=== PATIENT | female | born 1970 | race Asian ===

== ENCOUNTER → 2019-01-05 | Day surgery (SDC) | payer OTHER ==
--- OUTSIDE RECORDS SUMMARY | 2019-01-05 09:57 | XMS REPORT | Continuity of Care Document ---
:1970 Author Organization Interface Problems Problem Status Onset Date Classification Date Comments Source Reported Medications Medication Details Route Status Patient Ordering Order Source Instructions Provider Date Allergies, Adverse Reactions, Alerts Substance Category Reaction Severity Reaction Status Date Comments Source type Reported Immunizations Immunization Date Given Site Status Last Updated Comments Source Results Order Results Value Reference Date Interpretation Comments Source Name Range Vital Signs Vital Sign Value Date Comments Source Encounters Location Location Encounter Encounter Reason Attending ADM DC Status Source Details Type Number For Provider Date Date Visit Outpatient [id number] MARY 03/15 [facility] CELINA /Rene Brooks Procedures Procedure Code Date Perfomer Comments Source
--- OUTSIDE RECORDS SUMMARY | 2019-01-05 09:57 | XMS REPORT ---
:1970 Author Organization [facility] Address [address] [place] [address] Dr. Mclean [address] [place] [id number] Care Team Providers Name Role Phone Unavailable Unavailable Unavailable Problems This patient has no known problems. Allergies, Adverse Reactions, Alerts This patient has no known allergies or adverse reactions. Medications This patient has no known medications.
--- NOTE | 2019-01-05 11:13 | RAD REPORT ---
EXAM DESCRIPTION: Ultrasound-guided vacuum assisted breast core biopsy CLINICAL HISTORY: Breast mass R92.8 COMPARISON: Follow Up Breast Axilla Comp dated 12/18/2018 FINDINGS: Informed consent was obtained and time-out was performed. The patient's left breast was prepped and draped in the usual sterile fashion. 1% lidocaine was used for local anesthetic purposes. Utilizing aseptic technique and ultrasound guidance, a 12 gauge vacuum assisted core biopsy device wa s used to obtain 1 core specimens through the mass of interest left lower outer quadrant approximatel y 3 o'clock position. A post biopsy clip was then placed. All collected material was sent for cytology. Patient tolerated procedure well. IMPRESSION: Successful ultrasound guided vacuum assisted left breast mass biopsy.
== END ==
LOC: DS 09:48
PROVIDERS: ATTEND Student in an Organized Health Care Education/Training Program
DX: D24.2 Benign neoplasm of left breast (principal); N60.92 Unspecified benign mammary dysplasia of left breast
CPT/HCPCS: 19083; 88305

== ENCOUNTER 2019-03-02 10:48 | Emergency (ER) | payer OTHER ==
--- OUTSIDE RECORDS SUMMARY | 2019-03-02 10:51 | XMS REPORT | Continuity of Care Document ---
:1970 Author Organization [employer] Care Team Providers Name Role Phone [employer] Unavailable Unavailable Problems No Data Provided for This Section Medications No Data Provided for This Section Allergies, Adverse Reactions, Alerts No Known Medication Allergies Immunizations No Data Provided for This Section Results No Data Provided for This Section Pathology Reports No Data Provided for This Section Diagnostic Reports No Data Provided for This Section Consultation Notes No Data Provided for This Section Discharge Summaries No Data Provided for This Section History and Physicals No Data Provided for This Section Vital Signs No Data Provided for This Section Encounters Location Location Encounter Encounter Reason Attending ADM DC Status Source Details Type Number For Provider Date Date Visit Outpatient [id number] MARY 03/15 [facility] Procedures No Data Provided for This Section Assessment and Plan No Data Provided for This Section Plan of Care No Data Provided for This Section Social History No Data Provided for This Section Family History No Data Provided for This Section Advance Directives No Data Provided for This Section Functional Status No Data Provided for This Section
--- OUTSIDE RECORDS SUMMARY | 2019-03-02 10:51 | XMS REPORT ---
:1970 [facility] Address [address] [place] [address] Dr. [address] [place] [id number] Care Team Providers Name Role Phone Unavailable Unavailable Unavailable Problems This patient has no known problems. Allergies, Adverse Reactions, Alerts This patient has no known allergies or adverse reactions. Medications This patient has no known medications.
--- NOTE | 2019-03-02 12:12 | ER ---
Nurse's Notes [facility] Name: Valerio Dias Age: 48 yrs Sex: Female : 1970 Arrival Date: 03/02/2019 Time: 10:50 Bed 17 Private MD: Unknown, Unknown Diagnosis: Edema of buccal mucosa;Dental root caries Presentation: 03/02 11:12 Presenting complaint: Patient states: A dentist tried to do a root canal and they could la1 not get it done, They said too much infection so they put me on abx and pain meds, swelling to the left side of my face is getting worse, airway patent, no resp distress. Transition of care: patient was not received from another setting of care. Onset of symptoms was March 02, 2019. Risk Assessment: Do you want to hurt yourself or someone else? Patient reports no desire to harm self or others. Initial Sepsis Screen: Does the patient meet any 2 criteria? No. Patient's initial sepsis screen is negative. Does the patient have a suspected source of infection? No. Patient's initial sepsis screen is negative. Care prior to arrival: None. 11:12 Method Of Arrival: Ambulatory la1 11:12 Acuity: BOUCHRA 3 la1 AUCTIONEER TOBACCO: 12:53 LMP N/A - . tw2 Historical: - Allergies: 11:14 No Known Allergies; la1 - PMHx: 11:14 Diabetes - NIDDM; Hypertension; High Cholesterol; vit d deficiency; Anemia; la1 - Immunization history:: Adult Immunizations up to date. - Social history:: Smoking status: Patient/guardian denies using tobacco. - Ebola Screening: : No symptoms or risks identified at this time. Screenin:49 Abuse screen: Denies threats or abuse. Nutritional screening: No deficits noted. tw2 Tuberculosis screening: No symptoms or risk factors identified. Fall Risk None identified. Assessment: 11:49 General: Appears in no apparent distress. Behavior is calm, cooperative, appropriate tw2 for age. 11:49 Pain: Complains of pain in left cheek, mouth and left jaw. Neuro: Level of tw2 Consciousness is awake, alert, obeys commands, Oriented to person, place, time, situation. Cardiovascular: Heart tones S1 S2 Patient's skin is warm and dry. Respiratory: Airway is patent Respiratory effort is even, unlabored, Respiratory pattern is regular, symmetrical, Breath sounds are clear bilaterally. GI: No signs and/or symptoms were reported involving the gastrointestinal system. Abdomen is flat, Bowel sounds present X 4 quads. : No signs and/or symptoms were reported regarding the genitourinary system. EENT: Reports pain since dental pain from this too that i need a root canal on. Derm: No signs and/or symptoms reported regarding the dermatologic system. Musculoskeletal: Range of motion: intact in all extremities. 12:23 Reassessment: Patient appears in no apparent distress at this time. No changes from tw2 previously documented assessment. Patient and/or family updated on plan of care and expected duration. Pain level reassessed. Patient is alert, oriented x 3, equal unlabored respirations, skin warm/dry/pink. 12:52 Reassessment: Patient appears in no apparent distress at this time. No changes from tw2 previously documented assessment. Patient and/or family updated on plan of care and expected duration. Pain level reassessed. Patient is alert, oriented x 3, equal unlabored respirations, skin warm/dry/pink. Vital Signs: 11:15 BP 110 / 60; Pulse 74; Resp 16; Temp 97.9; Pulse Ox 98% on R/A; Weight 58.97 kg; la1 12:21 BP 110 / 57; Pulse 66; Resp 17; Temp 97.9(TE); Pulse Ox 100% on R/A; tw2 12:52 BP 108 / 57; Pulse 61; Resp 17; Pulse Ox 100% on R/A; tw2 ED Course: 10:50 Patient arrived in ED. ag5 10:51 Unknown, Unknown is Private Physician. ag5 11:14 Triage completed. la1 11:15 Arm band placed on left wrist. la1 11:24 [facility] Kra[facility]C [facility]. snw 11:24 Jose M Light MD is Attending Physician. snw 11:25 Nirmala Hickman, RIMA is Primary Nurse. tw2 11:48 Bed in low position. Call light in reach. Pulse ox on. NIBP on. tw2 12:22 Awaiting: completion of ABX observation after INJ prior to discharge. tw2 12:53 No provider procedures requiring assistance completed. Patient did not have IV access tw2 during this emergency room visit. Administered Medications: 12:15 Drug: Clindamycin 600 mg {Note: 2ml (300mg) in right gluteus, 2ml (300mg) in left tw2 gluteus.} Route: IM; Site: right gluteus; 12:32 Follow up: Response: No adverse reaction tw2 Outcome: 12:11 Discharge ordered by . nirav 12:53 Discharged to home ambulatory, with significant other. tw2 12:53 Condition: stable 12:53 Discharge instructions given to patient, significant other, Instructed on discharge instructions, follow up and referral plans. no drinking with medication, no driving heavy equipment, medication usage, Demonstrated understanding of instructions, follow-up care, medications, Prescriptions given X 2. 12:54 Patient left the ED. tw2 Signatures: Karen Kraus, SMOKE TESTER-C SMOKE TESTER-Csnw Naren Landa RN RN la1 Nirmala Hickman RN RN tw2 Garth Chadwick 5
--- NOTE | 2019-03-02 12:12 | EDPHYS ---
Physician Documentation [facility] Name: Valerio Dias Age: 48 yrs Sex: Female : 1970 Arrival Date: 03/02/2019 Time: 10:50 Bed 17 Private MD: Unknown, Unknown ED Physician Jose M Light HPI: 03/02 12:15 This 48 yrs old Female presents to ER via Ambulatory with complaints of Mouth snw Swelling, Dental Injury. 12:15 The patient presents with pain, swelling. The problem is located in the mouth and left snw cheek. Onset: The symptoms/episode began/occurred gradually, 3 day(s) ago, and became worse and became persistent. Duration: The symptoms are continuous. Modifying factors: the symptoms are aggravated by manipulation of buccal area. Associated signs and symptoms: Pertinent negatives: anorexia, chills, dysphagia, fever, redness in area. Severity of symptoms: At their worst the symptoms were moderate. The patient has not experienced similar symptoms in the past. dental cleaning and manipulation of cap for root canal prep. MATCH MARKER: 12:53 LMP N/A - . tw2 Historical: - Allergies: 11:14 No Known Allergies; la1 - PMHx: 11:14 Diabetes - NIDDM; Hypertension; High Cholesterol; vit d deficiency; Anemia; la1 - Immunization history:: Adult Immunizations up to date. - Social history:: Smoking status: Patient/guardian denies using tobacco. - Ebola Screening: : No symptoms or risks identified at this time. ROS: 12:09 Constitutional: Negative for fever, chills, and weight loss, Eyes: Negative for injury, snw pain, redness, and discharge, Neck: Negative for injury, pain, and swelling, Cardiovascular: Negative for chest pain, palpitations, and edema, Respiratory: Negative for shortness of breath, cough, wheezing, and pleuritic chest pain, Abdomen/GI: Negative for abdominal pain, nausea, vomiting, diarrhea, and constipation, Back: Negative for injury and pain, : Negative for injury, bleeding, discharge, and swelling, MS/Extremity: Negative for injury and deformity, Skin: Negative for injury, rash, and discoloration, Neuro: Negative for headache, weakness, numbness, tingling, and seizure, Psych: Negative for depression, anxiety, suicide ideation, homicidal ideation, and hallucinations. 12:09 ENT: Positive for dental pain, facial edema. Exam: 12:06 Constitutional: This is a well developed, well nourished patient who is awake, alert, snw and in no acute distress. Eyes: Pupils equal round and reactive to light, extra-ocular motions intact. Lids and lashes normal. Conjunctiva and sclera are non-icteric and not injected. Cornea within normal limits. Periorbital areas with no swelling, redness, or edema. Neck: Trachea midline, no thyromegaly or masses palpated, and no cervical lymphadenopathy. Supple, full range of motion without nuchal rigidity, or vertebral point tenderness. No Meningismus. Chest/axilla: Normal chest wall appearance and motion. Nontender with no deformity. No lesions are appreciated. Cardiovascular: Regular rate and rhythm with a normal S1 and S2. No gallops, murmurs, or rubs. Normal PMI, no JVD. No pulse deficits. Respiratory: Lungs have equal breath sounds bilaterally, clear to auscultation and percussion. No rales, rhonchi or wheezes noted. No increased work of breathing, no retractions or nasal flaring. Abdomen/GI: Soft, non-tender, with normal bowel sounds. No distension or tympany. No guarding or rebound. No evidence of tenderness throughout. Back: No spinal tenderness. No costovertebral tenderness. Full range of motion. Skin: Warm, dry with normal turgor. Normal color with no rashes, no lesions, and no evidence of cellulitis. MS/ Extremity: Pulses equal, no cyanosis. Neurovascular intact. Full, normal range of motion. Neuro: Awake and alert, GCS 15, oriented to person, place, time, and situation. Cranial nerves II-XII grossly intact. Motor strength 5/5 in all extremities. Sensory grossly intact. Cerebellar exam normal. Normal gait. Psych: Awake, alert, with orientation to person, place and time. Behavior, mood, and affect are within normal limits. 12:06 Head/face: Noted is swelling, that is moderate, of the left zygomatic area and left cheek. 12:06 ENT: TM's: are normal, Nose: is normal, Mouth: no elevation of floor of mouth, + buccal edema, ecchymosis to skin superior to distal mandible, Posterior pharynx: is normal, Dental exam: muliple caps to upper, molars to left, tenderness to buccal area . Vital Signs: 11:15 BP 110 / 60; Pulse 74; Resp 16; Temp 97.9; Pulse Ox 98% on R/A; Weight 58.97 kg; la1 12:21 BP 110 / 57; Pulse 66; Resp 17; Temp 97.9(TE); Pulse Ox 100% on R/A; tw2 12:52 BP 108 / 57; Pulse 61; Resp 17; Pulse Ox 100% on R/A; tw2 MDM: 11:25 Patient medically screened. snw 12:12 Data reviewed: vital signs, nurses notes. Data interpreted: Pulse oximetry: on room air snw is 98 %. Interpretation: normal. Counseling: I had a detailed discussion with the patient and/or guardian regarding: the historical points, exam findings, and any diagnostic results supporting the discharge/admit diagnosis, the need for outpatient follow up, to return to the emergency department if symptoms worsen or persist or if there are any questions or concerns that arise at home. Special discussion: Based on the history and exam findings, there is no indication for further emergent testing or inpatient evaluation. I discussed with the patient/guardian the need to see a dentist for further evaluation of the symptoms. 03/02 12:05 Order name: Ice pack; Complete Time: 12:11 snw Administered Medications: 12:15 Drug: Clindamycin 600 mg {Note: 2ml (300mg) in right gluteus, 2ml (300mg) in left tw2 gluteus.} Route: IM; Site: right gluteus; 12:32 Follow up: Response: No adverse reaction tw2 Disposition: 15:05 Co-signature as Attending Physician, Jose M Light MD. rn Disposition: 03/02/19 12:11 Discharged to Home. Impression: Edema of buccal mucosa, Dental root caries. - Condition is Stable. - Discharge Instructions: Dental Caries, Adult, Dental Pain, Root Canal, Diet and Dental Disease, Dental Extraction, Care After, Inae-de-Yefr, Preventive Dental Care, Adult. - Prescriptions for Clindamycin HCl 300 mg Oral Capsule - take 1 capsule by ORAL route every 8 hours for 10 days; 30 capsule. Tylenol- Codeine #3 300-30 mg Oral Tablet - take 2 tablets by ORAL route every 6 hours As needed; 14 tablet. - Medication Reconciliation Form, Thank You Letter, Antibiotic Education, Prescription Opioid Use, Work release form form. - Follow up: Private Physician; When: as scheduled; Reason: Recheck today's complaints, Continuance of care, Re-evaluation by your physician. - Notes: Please continue Motrin 800mg per Dentist instructions Signatures: Karen Kraus, HOOP RIVETER-C HOOP RIVETER-Csnw Jose M Light MD MD rn Attema, Lee, RN RN la1 Nirmala Hickman RN RN tw2 Corrections: (The following items were deleted from the chart) 12:54 12:11 03/02/2019 12:11 Discharged to Home. Impression: Edema of buccal mucosa; Dental tw2 root caries. Condition is Stable. Forms are Medication Reconciliation Form, Thank You Letter, Antibiotic Education, Prescription Opioid Use. Follow up: Private Physician; When: as scheduled; Reason: Recheck today's complaints, Continuance of care, Re-evaluation by your physician. snw
[2019-03-02] MEDS ORDERED: CLINDAMYCIN IV 150 MG/ML (4 mL) VIAL ONE (12:30)
== END 2019-03-02 12:54 | disposition home or self-care (01) ==
LOC: ER 10:48
DX: K02.7 Dental root caries (principal); R60.9 Edema, unspecified
CPT/HCPCS: 96372; 99283; S0077

== ENCOUNTER 2024-11-21 09:46 | Day surgery (SDC) | payer OTHER ==
[2024-11-20 08:53] LABS: Absolute Basophils 0.1 K/uL (0-0.5); Absolute Eosinophils 0.3 K/uL (0-0.5); Absolute Lymphocytes (CBC) 1.6 K/uL (0.7-4.9); Absolute Monocytes 0.5 K/uL (0.1-1.3); Absolute Neutrophil 5.8 K/uL (1.8-8.0); Basophils % 0.7 % (0-1.3); Eosinophils % 3.5 % (0-4.4); Hematocrit 39.9 % (36.0-45.0); Hemoglobin 12.8 g/dL (12.0-15.0); Lymphocytes % 19.2 % (15.3-44.8); MCH 26.9 pg (27.0-35.0); MCV 83.9 fL (80-100); MPV 11.8 fL (7.6-11.3); Monocytes % 5.6 % (3.3-12.3); Nucleated Red Blood Cells % 0.1 % (0-0); Platelets 202 thou/uL (152-406); RBC Red Blood Cell Count 4.75 M/uL (3.86-4.86); Red Cell Distribution Width 13.7 % (12.1-15.2)
--- NOTE | 2024-11-20 12:15 | EKG ---
Test Date: 2024-11-20 Test Time: 08:21:02 Nonprofit Manager: DORINA MEASUREMENT RESULTS: Intervals: Rate: 73 NM: 150 QRSD: 78 QT: 376 QTc: 414 Celina: P: 35 NM: 150 QRS: -7 T: 23 INTERPRETIVE STATEMENTS: Normal sinus rhythm Septal infarct, age undetermined Abnormal ECG Compared to ECG 08/14/2010 14:47:45 Myocardial infarct finding now present Electronically Signed On 11-20-24 12:14:42 CDT by Jorje Snell
[2024-11-21] MEDS ORDERED: LIDOCAINE 1% MPF 5 ML VIAL ONE (10:25)
[2024-11-21] MEDS ORDERED: propofoL 200 MG/20 ML VIAL IV ONE (10:25)
[2024-11-21] MEDS: NA CHLORIDE 0.9% 1,000 ML ONE (11:00)
[2024-11-21 13:21] VITALS: O2SAT 100
[2024-11-21 13:22] VITALS: TEMP 97.3
[2024-11-21 13:45] VITALS: BP 121/64
== END 2024-11-21 13:42 | disposition home or self-care (01) ==
LOC: OR 09:46
PROVIDERS: ATTEND Surgery
PROC: 0DB68ZX Excision of Stomach, Via Natural or Artificial Opening Endoscopic, Diagnostic (ICD-10-PCS; 2024-11-21)
PROC: 0DB48ZX Excision of Esophagogastric Junction, Via Natural or Artificial Opening Endoscopic, Diagnostic (ICD-10-PCS; 2024-11-21)
PROC: 0DBN8ZX Excision of Sigmoid Colon, Via Natural or Artificial Opening Endoscopic, Diagnostic (ICD-10-PCS; principal; 2024-11-21 11:00)
PROC: 0DB98ZX Excision of Duodenum, Via Natural or Artificial Opening Endoscopic, Diagnostic (ICD-10-PCS; 2024-11-21 11:00)
DX: Z12.11 Encounter for screening for malignant neoplasm of colon (principal); K21.9 Gastro-esophageal reflux disease without esophagitis; K29.50 Unspecified chronic gastritis without bleeding; K21.00 Gastro-esophageal reflux disease with esophagitis, without bleeding; K63.5 Polyp of colon; K22.70 Barrett's esophagus without dysplasia; K26.7 Chronic duodenal ulcer without hemorrhage or perforation; K57.30 Diverticulosis of large intestine without perforation or abscess without bleeding; K64.8 Other hemorrhoids; R13.10 Dysphagia, unspecified; I10 Essential (primary) hypertension; E11.9 Type 2 diabetes mellitus without complications; F41.9 Anxiety disorder, unspecified
CPT/HCPCS: 93005; 85025; 80048; 36415; 88312; 88313; 82947; 88305; 45380; 43239; J2704; J2003; J7030